=== PATIENT | female | born 1925 | race Caucasian/White ===

== ENCOUNTER 2017-04-01 08:13 | Inpatient (IN) | payer MEDICARE ==
[~2017-04-01] VITALS: Ht 157.4 cm; Wt 41.3 kg
--- NOTE | ~2017-04-01 | EKG ---
[place], [place] ELECTROCARDIOGRAM REPORT NAME: TONNY HARDIN UNIT #: [id number] ROOM: [id number] DOCTOR: CHAPITO AGARWAL MD BIRTHDATE: [birth year] DOS: 04/01/2017 TIME: 0906 hours. FINDINGS: 1. Normal sinus rhythm at 67 beats per minute. 2. Low voltage in limb leads. 3. Possible left ventricular hypertrophy. 4. No previous tracing is available for comparison. CHAPITO AGARWAL MD CM:EKGRPT:ELECTROCARDIOGRAM REPORT [id number] CHAPITO AGARWAL MD
[~2017-04-01 08:13] MED LIST: ARICEPT5 MG PO; ASPI-COR81 M1 PO; ATENOLOL25 MG PO; AUGMENTIN XR1000 M1 PO; BACTRIM DS 8001 TA1 PO; CALCIUM CARB W/1 TA1 PO; DULCOLAX10 MG R; DULCOLAX5 MG PO; HYDROCODONE BIT1 T11 PO; LIPITOR10 MG PO; LIPITOR40 MG PO; LISINOPRIL AND1 TA1 PO; LOVENOX30 MG/0.3 SC; MOM30 M1 PO; NEURONTIN100 MG PO; NIFEDICAL XL30 MG PO; NORVASC5 MG PO; OXYBUTYNIN5 MG PO; PLAVIX75 MG PO; PRILOSEC40 MG PO; PROSOURCE PROT946 ML PO; PROTONIX40 MG PO; TWOCAL-HN 240 ML8 OZ PO; TYLENOL325 M1 PO; VICODIN 500 MG-1 TAB PO; ZESTRIL20 MG PO; ZESTRIL30 M1 PO; ZOFRAN4 MG PO
[2017-04-01 08:30] VITALS: BP 143/61
[2017-04-01] MEDS ORDERED: VENLAFAXINE HYD75 M3 PO (08:49)
[2017-04-01 08:55] LABS: BASO # 0.1 10*3/uL (0.0-0.1); BASO % 1.3 % (0.0-1.0); EOS # 0.1 10*3/uL (0.0-0.4); EOS % 1.6 % (1.0-4.0); HEMATOCRIT 43.9 % (37.0-47.0); HEMOGLOBIN 14.4 g/dl (12.0-16.0); LYMPH # 0.9 10*3/uL (1.3-4.4); LYMPH % 14.6 % (27.0-41.0); MEAN CELL VOLUME 87.1 fl (81.0-99.0); MEAN CORPUSCULAR HGB 28.6 pg (27.0-31.0); MEAN CORPUSCULAR HGB CONC 32.8 g/dl (33.0-37.0); MEAN PLATELET VOLUME 11.3 fl (9.6-12.3); MONO # 0.4 10*3/uL (0.1-1.0); MONO % 5.8 % (3.0-9.0); NEUT # 4.9 10*3/uL (2.3-7.9); NEUT % 76.4 % (47.0-73.0); PLATELET COUNT AUTOMATED 258 10*3/uL (130-400); RED BLOOD COUNT 5.04 10*6/uL (4.10-5.10); RED CELL DISTRI WIDTH 15.4 % (0-14.5); WHITE BLOOD COUNT 6.4 10*3/uL (4.8-10.8)
[2017-04-01 09:06] LABS: INTERNATIONAL NORM RATIO 1.1 (2.0-3.5); PROTHROMBIN TIME 11.7 SECONDS (9.0-12.4)
[2017-04-01 09:10] LABS: ALBUMIN 3.1 gm/dl (3.1-4.5); ALKALINE PHOSPHATASE 76 U/L (45-117); BILIRUBIN, TOTAL 0.7 mg/dl (0.2-1.0); BUN 8 mg/dl (7-24); CARBON DIOXIDE 30 mmol/L (21-32); CHLORIDE 106 mmol/L (98-107); CKMB 1.1 ng/ml (0.5-3.6); CPK 39 U/L (26-192); EST GLOM FILT AFRICAN AMERICAN > 60 ml/min; GLUCOSE 102 mg/dL (65-99); MAGNESIUM 2.3 mg/dL (1.5-2.1); POTASSIUM 4.1 mmol/L (3.5-5.1); SGOT/AST 18 IU/L (3-35); SGPT/ALT 15 U/L (12-78); SODIUM 144 mmol/L (136-145); TOTAL PROTEIN 6.6 gm/dL (6.4-8.2)
[2017-04-01 09:21] LABS: C-REACTIVE PROTEIN < 0.29 MG/DL (0-0.3); TROPONIN I < 0.015 ng/ml (<0.045)
[2017-04-01 09:39] LABS: BILIRUBIN NEGATIVE (NEGATIVE); BLOOD NEGATIVE (NEGATIVE); CLARITY CLOUDY (CLEAR); COLOR YELLOW (YELLOW); GLUCOSE NEGATIVE (NEGATIVE); KETONE NEGATIVE (NEGATIVE); LEUKO ESTERASE NEGATIVE (NEGATIVE); NITRITE NEGATIVE (NEGATIVE); PROTEIN NEGATIVE (NEGATIVE)
[2017-04-01 09:56] LABS: BACTERIA TRACE; URINE REFLEX COMMENT NO (NO)
[2017-04-01 11:53] VITALS: BP 143/61
[2017-04-01 14:25] VITALS: BP 126/68
[2017-04-01 16:00] VITALS: BP 124/57
[2017-04-01 20:00] VITALS: BP 145/51
[2017-04-02] VITALS: BP 133/66
[2017-04-02 06:14] LABS: BASO # 0.1 10*3/uL (0.0-0.1); BASO % 0.9 % (0.0-1.0); EOS # 0.1 10*3/uL (0.0-0.4); EOS % 0.8 % (1.0-4.0); HEMATOCRIT 41.5 % (37.0-47.0); HEMOGLOBIN 13.7 g/dl (12.0-16.0); LYMPH # 0.9 10*3/uL (1.3-4.4); LYMPH % 9.9 % (27.0-41.0); MEAN CELL VOLUME 87.2 fl (81.0-99.0); MEAN CORPUSCULAR HGB 28.8 pg (27.0-31.0); MEAN PLATELET VOLUME 11.7 fl (9.6-12.3); MONO # 0.8 10*3/uL (0.1-1.0); MONO % 8.7 % (3.0-9.0); NEUT # 7.2 10*3/uL (2.3-7.9); NEUT % 79.3 % (47.0-73.0); PLATELET COUNT AUTOMATED 227 10*3/uL (130-400); RED BLOOD COUNT 4.76 10*6/uL (4.10-5.10); RED CELL DISTRI WIDTH 15.2 % (0-14.5); WHITE BLOOD COUNT 9.1 10*3/uL (4.8-10.8)
[2017-04-02 06:44] LABS: ALBUMIN 2.9 gm/dl (3.1-4.5); BUN 10 mg/dl (7-24); CARBON DIOXIDE 28 mmol/L (21-32); CHLORIDE 106 mmol/L (98-107); CHOLESTEROL 79 mg/dL (<200); EST GLOM FILT AFRICAN AMERICAN > 60 ml/min; GLUCOSE 92 mg/dL (65-99); MAGNESIUM 2.1 mg/dL (1.5-2.1); POTASSIUM 3.4 mmol/L (3.5-5.1); SGOT/AST 10 IU/L (3-35); SGPT/ALT 14 U/L (12-78); SODIUM 141 mmol/L (136-145)
[2017-04-02 06:51] LABS: ALKALINE PHOSPHATASE 67 U/L (45-117); BILIRUBIN, TOTAL 0.9 mg/dl (0.2-1.0); FREE T4 1.13 ng/dl (0.76-1.46); HDL CHOLESTEROL 47 mg/dl (40-60); LDL CHOLESTEROL 21 mg/dL (9-159); TOTAL PROTEIN 6.2 gm/dL (6.4-8.2); TRIGLYCERIDES 56 mg/dl (<150); VLDL CHOLESTEROL 11 mg/dL (6-40)
[2017-04-02 07:04] LABS: HEMOGLOBIN A1c 5.3 % (4.8-5.6)
[2017-04-02 08:00] VITALS: BP 130/54
[2017-04-02 08:37] LABS: VITAMIN D, 25-HYDROXY 11.4 ng/mL (30-100)
[2017-04-02 08:38] LABS: FOLIC ACID 7.36 ng/mL (>5.38)
[2017-04-02 12:00] VITALS: BP 125/66
[2017-04-02 16:00] VITALS: BP 122/51
[2017-04-02 20:00] VITALS: BP 141/51
[2017-04-03] VITALS: BP 134/52
[2017-04-03 08:00] VITALS: BP 130/69
[2017-04-03 12:00] VITALS: BP 101/52
[2017-04-03 16:00] VITALS: BP 127/52
[2017-04-03 20:00] VITALS: BP 111/52
[2017-04-04] VITALS: BP 128/73
[2017-04-04 08:00] VITALS: BP 130/60
[2017-04-04 12:00] VITALS: BP 134/56
[2017-04-04 16:00] VITALS: BP 120/82; BP 130/48
[2017-04-04 20:00] VITALS: BP 126/56
[2017-04-05] VITALS: BP 128/60
[2017-04-05 06:34] LABS: BASO # 0.1 10*3/uL (0.0-0.1); BASO % 0.9 % (0.0-1.0); EOS # 0.2 10*3/uL (0.0-0.4); EOS % 2.7 % (1.0-4.0); HEMATOCRIT 39.9 % (37.0-47.0); HEMOGLOBIN 12.7 g/dl (12.0-16.0); LYMPH # 1.4 10*3/uL (1.3-4.4); LYMPH % 17.4 % (27.0-41.0); MEAN CELL VOLUME 88.5 fl (81.0-99.0); MEAN CORPUSCULAR HGB 28.2 pg (27.0-31.0); MEAN CORPUSCULAR HGB CONC 31.8 g/dl (33.0-37.0); MEAN PLATELET VOLUME 11.5 fl (9.6-12.3); MONO # 0.6 10*3/uL (0.1-1.0); MONO % 8.1 % (3.0-9.0); NEUT # 5.5 10*3/uL (2.3-7.9); NEUT % 70.4 % (47.0-73.0); PLATELET COUNT AUTOMATED 217 10*3/uL (130-400); RED BLOOD COUNT 4.51 10*6/uL (4.10-5.10); RED CELL DISTRI WIDTH 15.5 % (0-14.5); WHITE BLOOD COUNT 7.8 10*3/uL (4.8-10.8)
[2017-04-05 06:58] LABS: EST GLOM FILT AFRICAN AMERICAN > 60 ml/min
[2017-04-05 08:00] VITALS: BP 133/53
[2017-04-05 12:00] VITALS: BP 113/48
[2017-04-05] MEDS ORDERED: VITAMIN D50000 I3 PO (13:57)
[2017-04-05] MEDS ORDERED: ACETAMINOPHEN-H1 TA2 PO (13:57)
[2017-04-05 16:00] VITALS: BP 118/49
== END 2017-04-05 18:58 | disposition other institution (70) | DRG 534 ==
LOC: ED 08:13 → EDHOLD 13:08 → 5E 13:08
PROVIDERS: Emergency Medicine; Internal Medicine
DX: S72.92XA Unspecified fracture of left femur, initial encounter for closed fracture (principal); E44.0 Moderate protein-calorie malnutrition; S01.81XA Laceration without foreign body of other part of head, initial encounter; I10 Essential (primary) hypertension; S70.12XA Contusion of left thigh, initial encounter; Z68.1 Body mass index [BMI] 19.9 or less, adult; F32.9 Major depressive disorder, single episode, unspecified; K21.9 Gastro-esophageal reflux disease without esophagitis; E78.5 Hyperlipidemia, unspecified; R32 Unspecified urinary incontinence; W18.09XA Striking against other object with subsequent fall, initial encounter; E83.41 Hypermagnesemia; E87.6 Hypokalemia; E55.9 Vitamin D deficiency, unspecified; Z79.02 Long term (current) use of antithrombotics/antiplatelets; Z79.899 Other long term (current) drug therapy; Y93.89 Activity, other specified; Y92.89 Other specified places as the place of occurrence of the external cause; Y99.8 Other external cause status; Z88.1 Allergy status to other antibiotic agents; Z88.8 Allergy status to other drugs, medicaments and biological substances; Z90.710 Acquired absence of both cervix and uterus; Z90.49 Acquired absence of other specified parts of digestive tract; Z82.49 Family history of ischemic heart disease and other diseases of the circulatory system; Z82.3 Family history of stroke

== ENCOUNTER → 2017-04-21 | Outpatient (CLI) | payer MEDICARE ==
[~2017-04-21] MED LIST changes: +ACETAMINOPHEN-H1 TA2 PO; +VENLAFAXINE HYD75 M3 PO; +VITAMIN D50000 I3 PO
== END | disposition home or self-care (01) ==
LOC: ORTHO 00:28
DX: S70.12XA Contusion of left thigh, initial encounter (principal); S72.92XA Unspecified fracture of left femur, initial encounter for closed fracture; X58.XXXA Exposure to other specified factors, initial encounter; Y93.89 Activity, other specified; Y92.89 Other specified places as the place of occurrence of the external cause; Y99.8 Other external cause status